=== PATIENT | female | born 1995 | race Caucasian/White ===

== ENCOUNTER 2016-04-25 18:14 | Emergency (ER) | payer MEDICAID ==
[~2016-04-25] VITALS: Ht 157.5 cm; Wt 80.3 kg
[2016-04-25 18:32] VITALS: BP 142/63
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
--- NOTE | 2016-04-25 19:38 | NUR ---
DR FREED EVALUATING PATIENT AT BEDSIDE.
[2016-04-25 20:14] VITALS: BP 134/64
--- NOTE | 2016-04-25 20:14 | NUR ---
Patient discharged with v/s stable. Written and verbal after care instructions given and explained. Patient alert, oriented and verbalized understanding of instructions. Ambulatory with steady gait. All questions addressed prior to discharge. ID band removed. Patient advised to follow up with PMD. Rx of HYDROCORTISONE given. Patient educated on indication of medication including possible reaction and side effects. Opportunity to ask questions provided and answered.
== END 2016-04-25 20:14 | disposition home or self-care (01) ==
LOC: MED 18:14
DX: L56.8 Other specified acute skin changes due to ultraviolet radiation (principal)
CPT/HCPCS: 99283

== ENCOUNTER 2016-09-03 17:25 | Emergency (ER) | payer MEDICAID ==
[~2016-09-03] VITALS: Ht 157.5 cm; Wt 70.3 kg
[2016-09-03 18:52] VITALS: BP 119/56
--- NOTE | 2016-09-03 21:00 | NUR ---
TO ER BED 3
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
--- NOTE | 2016-09-03 21:09 | NUR ---
Patient being evaluated by physician at bedside.
--- NOTE | 2016-09-03 22:13 | NUR ---
MOVED TO ER OF1
[2016-09-03 22:18] LABS: APPEARANCE,URINE HAZY (CLEAR); BILIRUBIN,URINE NEGATIVE (NEGATIVE); BLOOD, URINE 1+ (NEGATIVE); COLOR,URINE YELLOW (YELLOW); LEUKOCYTE ESTERASE ,URINE NEGATIVE (NEGATIVE); NITRITE, URINE NEGATIVE (NEGATIVE); PROTEIN,URINE NEGATIVE (NEGATIVE); UGLUCOSE NEGATIVE (NEGATIVE); UROBILINOGEN,URINE 0.2 EU/dL (0.2 - 1)
[2016-09-03 22:25] LABS: BACTERIA,URINE 1+ /HPF (None Seen); WBC,URINE 0-3 /HPF (0-5)
[2016-09-03 22:26] LABS: MUCUS,URINE 2+ /LPF (None Seen)
[2016-09-03 22:37] VITALS: BP 115/59
--- NOTE | 2016-09-03 22:41 | NUR ---
Patient discharged with v/s stable. Written and verbal after care instructions given and explained. Patient alert, oriented and verbalized understanding of instructions. Ambulatory with steady gait. All questions addressed prior to discharge. ID band removed. Patient advised to follow up with PMD. Rx of REGLAN 10MG Q12HR PRN, SUMATRIPTAN 50MG given. Patient educated on indication of medication including possible reaction and side effects. Opportunity to ask questions provided and answered.
== END 2016-09-03 22:37 | disposition home or self-care (01) ==
LOC: MED 17:25
DX: G44.009 Cluster headache syndrome, unspecified, not intractable (principal)
CPT/HCPCS: 70450; 81001; 81025; 99284

== ENCOUNTER 2020-07-30 21:12 | Emergency (ER) | payer OTHER ==
[~2020-07-30] VITALS: Ht 157.5 cm; Wt 90.3 kg
[2020-07-30 21:18] VITALS: BP 117/48
--- NOTE | 2020-07-30 21:18 | NUR ---
TO BED AMBULATORY
[2020-07-30] MEDS ORDERED: KETOROLAC 60 MG/2 ML VIAL IM ONE (21:25)
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
--- NOTE | 2020-07-30 21:52 | NUR ---
ERMD AT BEDSIDE.
[2020-07-30] MEDS ORDERED: IBUP-2213 PO (22:09)
[2020-07-30] MEDS ORDERED: ACET-8386 PO (22:09)
--- NOTE | 2020-07-30 22:14 | NUR ---
Patient discharged with v/s stable. Written and verbal after care instructions given and explained. Patient alert, oriented and verbalized understanding of instructions. Ambulatory with steady gait. All questions addressed prior to discharge. ID band removed. Patient advised to follow up with PMD. Rx of IBUPROFEN AND NORCO given. Patient educated on indication of medication including possible reaction and side effects. Opportunity to ask questions provided and answered.
== END 2020-07-30 22:14 | disposition home or self-care (01) ==
LOC: MED 21:12
DX: S30.0XXA Contusion of lower back and pelvis, initial encounter (principal); R51.9 Headache, unspecified; V98.8XXA Other specified transport accidents, initial encounter; Y93.89 Activity, other specified; Y92.89 Other specified places as the place of occurrence of the external cause; Y99.8 Other external cause status
CPT/HCPCS: 96372; 99283; J1885